=== PATIENT | female | born 1985 | race Caucasian/White ===

== ENCOUNTER 2016-06-08 10:05 | Observation (INO) ==
[2016-06-08 12:37] LABS: Apearance,Urine CLOUDY (Clear); Bilirubin,Urine Negative (Negative); Blood, Urine Negative (Negative); Glucose,Urine (UA) Negative (Negative); Ketones,Urine Negative (Negative); Mucus,Urine Many /LPF (Occasional); Nitrite,Urine Negative (Negative); Protein,Urine Negative; RBC,Urine 8 /HPF (0-4); Squamous Epithelial Cell,Urine Occasional /HPF (0-10); Urine Color Amber (Yellow); Urine Specific Gravity 1.019 (1.001-1.035); Urine Urobilinogen < 2.0 EU/DL (0.2-1.0); WBC,Urine 5 /HPF (0-6)
[2016-06-08 12:52] LABS: Albumin 4.3 G/DL (3.4-5.0); Calcium 9.4 MG/DL (8.5-10.1); Potassium 4.9 MMOL/L (3.5-5.1); Total Protein 8.2 G/DL (6.4-8.3)
[2016-06-08] MEDS ORDERED: ONDANSETRON 4 MG/2 ML VIAL IV STA ×2 (13:00→15:32)
[2016-06-08] MEDS ORDERED: ONDANSETRON 4 MG/2 ML VIAL ONE ×3 (13:08→16:29)
[2016-06-08 13:12] LABS: Basophils # 0.1 10*3/uL (0.0-0.2); Basophils % 0.8 % (0.0-0.8); Eosinophils # 0.2 10*3/uL (0.0-0.87); Eosinophils % 2.6 % (0.00-10.9); Hemoglobin 13.4 GM/DL (12.0-16.0); Immature Granulocytes % 0.2 %; Immature Granulocytes Absolute 0.02 #; Lymphocytes # 2.7 10*3/uL (1.4-4.0); Mean Corpuscular HGB Conc 32.7 GM/DL (32-36); Mean Corpuscular Hemoglobin 30 PG (27-34); Mean Corpuscular Volume 91.5 FL (87-102); Mean Platelet Volume 9.6 FL (9.6-12.0); Monocytes # 0.5 10*3/uL (0.11-0.8); Monocytes % 5.3 % (1.7-12.7); Neutrophils # 5.2 10*3/uL (1.4-7.4); Neutrophils % 60.1 % (38.7-73.9); Platelet Count 288 10*3/uL (130-400); Red Blood Count 4.48 10*6/uL (3.8-5.5); Red Cell Distribution Width 12.3 % (9.3-17.3); White Blood Count 8.7 10*3/uL (4.5-13.71)
--- NOTE | 2016-06-08 15:18 | Emergency Department Note ---
Hermes Burns Gwan, am scribing for, and in the presence of, Eugene Ng MD 13:07. Hernandez Burns Phillip K, MD, personally performed the services described in this documentation, ascribed by Tevin Mirza in my presence, and it is both accurate and complete 517 . Arrival - Arrival Chief Complaint: Abdominal / Flank Pain Stated Complaint: pain in upper right abd, back pain ED Nursing Triage Note: Pt c/o right upper abd, Epigastric pain that goes through to her back for a while now with nausea. Mode of Arrival: Ambulatory Limitations: No Limitations Source: Patient, Old Records Reviewed, RN Notes Reviewed - History of Present Illness HPI Narrative: Pt is a 30 y/o female who presents to the ED with a c/o right upper abd pain with an onset of months. Patient noted that her pain has been constant. Nurses noted that pt was seen in ED 05/10/2016 for the same reason and received a sonogram negative results. She was instructed to get a Hida Scan done. Patient stated that she has not been complaint with discharge instructions. She confirmed that her pain is worsened with eating, that her pain radiates to her back, that she smokes and has occasional ETOH use. She denies fever, diarrhea. Her associated sxs have been nausea. She is followed by Dr. Frank. Patient has a PMHx of Appendectomy and a FMHx of gall stones. No other problems/complaints reported in ED. Onset (ago): day(s) Consistency: constant Severity: moderate Date of Last Menstrual Period: HYST Allergies/Adverse Reactions: Allergies Allergy/AdvReac Type Severity Reaction Status Date / Time adhesive Allergy Redness of Verified 06/08/16 10:12 Skin cephalexin [From Keflex] Allergy ANAPHYLAXIS Verified 05/17/16 18:07 Latex, Natural Rubber Allergy Swelling Verified 05/17/16 18:07 of Lip/Tongue/Throat Penicillins Allergy ANAPHYLAXIS Verified 05/17/16 18:07 Home Medications: Home Medications Medication Instructions Recorded Confirmed Type Alprazolam [Xanax] 2 mg PO BID 05/10/16 05/10/16 History Melatonin 1 tablet PO DAILY PRN 05/10/16 05/10/16 History Paroxetine HCl [Paxil] 40 mg PO BID 05/10/16 05/10/16 History Zolpidem [Ambien] 5 mg PO BEDTIME 05/10/16 05/10/16 History traZODone [Desyrel] 100 mg PO BID 05/10/16 05/10/16 History Dicyclomine Cap/Tab [Bentyl 20 mg PO QID PRN #20 tablet 05/11/16 Rx Cap/Tab] Ondansetron [Ondansetron Odt] 8 mg PO Q4H PRN #10 tab.rapdis 05/11/16 Rx Cyclobenzaprine HCl 5 mg PO TID #30 tablet 05/17/16 Rx Naproxen [Naprosyn] 500 mg PO Q12H #30 tablet 05/17/16 Rx Review of System - Review of System 12 point system: reviewed and no additional remarkable complaints except as stated - Review of System Gastrointestinal: Present: as per HPI, abdominal pain, nausea Musculoskeletal: Present: as per HPI, back pain Medical,Surgical,& Family Hx - Medical History Psychological: History of: Anxiety Disorders, Depression Neurology: History of: Migraine - Surgical History Reproductive Surgeries: Surgical HX of;: Hysterectomy - Family History Family History: Reports;: Family Cancer, Family Hypertension, Family Stroke - Social History Smoking Status: Current every day smoker Exam Vital Signs: Vital Signs Temperature 96.9 F L 06/08/16 10:08 Pulse Rate 97 H 06/08/16 10:08 Respiratory Rate 18 06/08/16 10:08 Blood Pressure 113/78 06/08/16 10:08 O2 Sat by Pulse Oximetry 96 06/08/16 10:08 - General General appearance: alert - Head Head exam: Present: atraumatic, normocephalic - Eye Eye exam: Present: normal appearance, PERRL, EOMI - ENT ENT exam: Present: normal oropharynx, mucous membranes moist, TM's normal bilaterally, normal external ear exam - Neck Neck exam: Present: full ROM, tenderness - Chest Chest inspection: Present: symmetric chest wall rise. Absent: tenderness - Respiratory Respiratory exam: Present: normal lung sounds bilaterally. Absent: respiratory distress - Cardiovascular Cardiovascular exam: Present: regular rate, normal rhythm, normal heart sounds. Absent: murmur, rubs, gallop - Extremities Exam Extremities exam: Present: full ROM. Absent: tenderness, pedal edema, calf tenderness - Back Exam Back exam: Present: full ROM - Neurological Exam Neurological exam: Present: alert, oriented X3, CN II-XII intact. Absent: motor sensory deficit - Psychiatric Psychiatric exam: Present: normal affect, normal mood - Skin Skin exam: Present: warm, dry, intact, normal color Results - Labs CBC & BMP: 06/08/16 12:53 06/08/16 12:22 Lab Results: I have reviewed the patients labs Labs: Laboratory Tests 06/08/16 12:19 Urine pH 5.0 Ur Specific [place] 1.019 Urine Urobilinogen < 2.0 H Urine Leukocytes Small H Urine RBC 8 Urine WBC 5 Ur Squamous Epith Cells Occasional Urine Mucus Many Laboratory Tests 06/08/16 12:53 WBC 8.7 RBC 4.48 Hgb 13.4 Hct 41.0 Plt Count 288 Laboratory Tests 06/08/16 12:22 Sodium 143 Potassium 4.9 Chloride 109 H Carbon Dioxide 25 BUN 15 Creatinine 0.50 L BUN/Creatinine Ratio 30.00 H Globulin 3.9 H - Diagnostic Findings Procedure: X-ray: report reviewed by me (HIDA scan shows a 3% ejection fraction. ) Disposition Clinical Impression: Acute acalculous cholecystitis Case discussed with: patient Disposition: Still a Patient Condition: Guarded Additional Instructions: Admit to Dr. Hinojosa
--- NOTE | 2016-06-08 15:24 | Nuclear Medicine Report ---
NM hepatobiliary Indication: Abdominal pain. HIDA scan Technique: Following the IV administration of 5 mCi technetium 99 labeled Choletec, planar imaging of the liver was performed. At 60 minutes, 1.8 mcg of sincalide was injected IV, and time activity curves of the gallbladder calculated. Findings: Normal liver activity at 5 minutes followed by common bile duct and small bowel activity at 15 minutes. At 60 minutes, gallbladder still shows no activity. At 90 minutes, faint gallbladder activity is present. With the injection of cholecystokinin, patient complained of nausea and cramping. Ejection fraction is 0%. Impression: Cholecystitis. Gallbladder dyskinesia. No CBD obstruction. PROCEDURE INTERPRETED AT [facility] DEPARTMENT OF RADIOLOGY Final Report Signed by: Lionel Oliveira M.D.
[2016-06-08] MEDS ORDERED: MORPHINE 2 MG/1 ML SYRINGE IV STA (15:32)
[2016-06-08] MEDS ORDERED: MORPHINE 2 MG/1 ML SYRINGE ONE (15:40)
[2016-06-08] MEDS ORDERED: VANCOMYCIN INJ 1,000 MG in SODIUM CHLORIDE 0.9% 250 ML IV ONE (15:51)
--- NOTE | 2016-06-08 15:56 | General Surg History&Physical ---
Addendum entered and electronically signed by Jeremy Coreas MD 06/08/16 16:06: Patient seen and examined. See Hazel Chu's note for details. Patient presents with a two-week history of right upper quadrant abdominal pain. Previous ultrasound showed no significant pathology. She underwent HIDA scan today after her pain is continually progressed which was consistent with cholecystitis. She's had nausea and vomiting but no fever. Her lab work was reviewed. She is otherwise healthy with the exception of depression and anxiety. She has no problems with her heart or lungs. On exam her abdomen is soft but very tender to palpation in the right upper quadrant with a positive Mccarty sign. I discussed options with the patient including antibiotic therapy alone versus percutaneous cholecystostomy tube versus laparoscopic cholecystectomy. She wants to proceed with laparoscopic cholecystectomy. The risk of the procedure including bleeding, infection, damage to surrounding structures, need for further surgery, injury to the biliary tree, conversion to an open procedure were all discussed in detail. She would like to proceed as soon as possible. Original Note: Assessment and Plan - Time spent with patient Time spent with patient: Less than 30 minutes (1) Acute cholecystitis without calculus Status: Acute Assessment and plan: 30WF w history of anxiety and depression admitted by dr coreas w acute cholecystitis w biliary dyskinesia. pt is npo. to OR today by dr coreas for lap appy. dr coreas has seen and examined pt. Current Visit: Yes History of Present Illness Chief complaint: abd pain History of present illness: 30WF w history of anxiety and depression came into ED w 2 wk history of intermittent RUQ and epigastric abdominal pain that radiates through to the back. pt came into ED on 05/10/17 and discharged home w diagnosis of constipation. US done at that time was normal. pt states the pain has continued to worsen and the last 3 days it has been constant. she hasnt had anything to eat or drink in 2 days. this pain is accompanied by nausea and vomiting w chills but no fever. pt denies CP but cant take deep breath because of the abdominal pain. she has had a lap appy, 3 Csections and complete hysterectomy. her labs are normal, HIDA scan w 0%EF and nausea and cramping w administration of dye. pt is visibly in pain and very ttp in ruq and epig. dr coreas has been asked to admit. Home Medications Medication Instructions Recorded Confirmed Type Alprazolam [Xanax] 2 mg PO BID 05/10/16 05/10/16 History Melatonin 1 tablet PO DAILY PRN 05/10/16 05/10/16 History Paroxetine HCl [Paxil] 40 mg PO BID 05/10/16 05/10/16 History Zolpidem [Ambien] 5 mg PO BEDTIME 05/10/16 05/10/16 History traZODone [Desyrel] 100 mg PO BID 05/10/16 05/10/16 History Dicyclomine Cap/Tab [Bentyl 20 mg PO QID PRN #20 tablet 05/11/16 Rx Cap/Tab] Ondansetron [Ondansetron Odt] 8 mg PO Q4H PRN #10 tab.rapdis 05/11/16 Rx Cyclobenzaprine HCl 5 mg PO TID #30 tablet 05/17/16 Rx Naproxen [Naprosyn] 500 mg PO Q12H #30 tablet 05/17/16 Rx Allergies Allergy/AdvReac Type Severity Reaction Status Date / Time adhesive Allergy Redness of Verified 06/08/16 10:12 Skin cephalexin [From Keflex] Allergy ANAPHYLAXIS Verified 05/17/16 18:07 Latex, Natural Rubber Allergy Swelling Verified 05/17/16 18:07 of Lip/Tongue/Throat Penicillins Allergy ANAPHYLAXIS Verified 05/17/16 18:07 Medical,Surgical,& Family Hx - Medical History Psychological: History of: Anxiety Disorders, Depression Neurology: History of: Migraine - Surgical History Reproductive Surgeries: Surgical HX of;: Hysterectomy - Family History Family History: Reports;: Family Cancer, Family Hypertension, Family Stroke - Social History Smoking Status: Current every day smoker Exam - Constitutional Vitals: Period Temp Pulse Resp BP Sys/Loera Pulse Ox Last 24 Hr 96.9 F 97 18 113/78 96 30WF, mild distress due to pain, alert and oriented present chest clear cv rrr abd soft, well healed scars around umbilicus and lower pelvis, TTP RUQ and epig , no peritoneal signs ext no edema - Constitutional Constitutional: Present: as per HPI Quality Measures - VTE Contraindication to Pharmacological VTE Prophylaxis: High Risk of Bleeding Results - Labs CBC & BMP: 06/08/16 12:53 06/08/16 12:22 Lab Results: I have reviewed the past 24 hour labs
[2016-06-08] MEDS ORDERED: FAMOTIDINE 20 MG/2 ML VIAL IV ONE (16:00)
[2016-06-08] MEDS ORDERED: LIDOCAINE 1%/EPI INJ 20 ML VIAL ONE (16:01)
[2016-06-08] MEDS ORDERED: BUPIVACAINE MPF 0.25% /EPI 30 ML VIAL ONE (16:01)
[2016-06-08] MEDS ORDERED: TISSUE ADHESIVE 1 EACH APPLICATOR TOP ONE (16:01)
[2016-06-08] MEDS ORDERED: DEXAMETHASONE 10 MG/1 ML VIAL ONE (16:29)
[2016-06-08] MEDS ORDERED: PROPOFOL 200 MG/20 ML VIAL IV ONE (16:29)
[2016-06-08] MEDS ORDERED: GLYCOPYRROLATE 0.4 MG/2 ML VIAL ONE (16:29)
[2016-06-08] MEDS ORDERED: ROCURONIUM 100 MG/10 ML VIAL IV ONE (16:29)
[2016-06-08] MEDS: LACTATED RINGERS 1,000 ML IV SCH ×2 (16:29→17:30)
[2016-06-08] MEDS ORDERED: NEOSTIGMINE 10 MG/10 ML VIAL ONE (16:29)
[2016-06-08] MEDS ORDERED: KETOROLAC 30 MG/1 ML VIAL ONE (16:29)
[2016-06-08] MEDS ORDERED: LIDOCAINE 2% 5 ML VIAL ONE (16:29)
[2016-06-08] MEDS ORDERED: CIPROFLOXACIN 400 MG/200 ML PREMIX IV ONE (16:57)
[2016-06-08] MEDS ORDERED: ACETAMINOPHEN 325 MG TABLET PO PRN (17:16)
[2016-06-08] MEDS ORDERED: ONDANSETRON 4 MG/2 ML VIAL IV PRN ×2 (17:16→17:38)
--- NOTE | 2016-06-08 17:22 | Operative Note ---
Date of procedure: 06/08/16 Pre-op diagnosis: acute cholecystitis Post-op diagnosis: same (early cholecystitis, biliary dyskinesia) Procedure: Procedure performed: Laparoscopic cholecystectomy next Procedure in detail: After informed consent was obtained, the patient was taken operating suite and laid supine on the operating table. After general anesthesia was induced the abdomen was prepped and draped in usual sterile fashion. After procedural pause local anesthetic and straighten the skin and subcutaneous tissue just above the umbilicus. Incision was made and dissection carried down through skin and soft tissue. Fascia was grasped with [place]'s note elevated. Fascial incision was made and the abdominal cavity was entered bluntly. Finger sweep revealed no adhesions. Duvall trocar placed under visualization and pneumoperitoneum achieved. Camera inserted and bowel and mesentery were inspected and found be free of any violation. Patient was placed in reverse Trendelenburg position rotated to the left. 25 mm trochars were placed in the right upper quadrant 11 mm subxiphoid trocar was placed all under visualization. Gallbladder identified it was dilated with minimal edema present. It was grasped and retracted toward the head. Infundibular gallbladder retracted toward the right hip. Dissection was then carried out from a lateral to medial approach and the triangle of [place]. Cystic duct and cystic artery were identified and isolated. Using a critical view technique these were the only 2 structures entering the gallbladder. The cystic duct was then triple clipped and transected at the junction of the cystic duct and neck of the gallbladder. The cystic artery was triple clipped and transected along the gallbladder wall. Gallbladder was removed moved from the gallbladder fossa using hook cautery and placed in an Endo Catch sac. It was retrieved through the Duvall trocar site pneumoperitoneum was reachieved. Right upper quadrant was inspected and the clips found be intact no leakage of bilious or sanguinous fluid. There was excellent hemostasis. The trochars were removed as the abdomen desufflated. Fascia at the Duvall trocar site closed using 0 Vicryl [id number] interrupted suture. Once thoroughly irrigated and suction the skin closed with shayla. Sterile dressings applied and the patient was explained taken recovery room in stable condition. All lap and needle counts correct at the end of the case. Anesthesia: GETA Surgeon / Physician: Jeremy Mclean Estimated blood loss: other (less than 5 mL) Specimens: other (gallbladder) Condition: stable Disposition: PACU Results - Labs CBC & BMP: 06/08/16 12:53 06/08/16 12:22 Discharge Plan - Discharge Data Disposition: Still a Patient - Discharge Medications No Action traZODone [Desyrel] 100 mg PO BID Zolpidem [Ambien] 5 mg PO BEDTIME Melatonin 10 mg PO BEDTIME Paroxetine HCl [Paxil] 40 mg PO DAILY Alprazolam [Xanax] 2 mg PO BID Ondansetron [Ondansetron Odt] 8 mg PO Q4H PRN #10 tab.rapdis PRN Reason: Nausea - Follow Up or Referral - Forms/Instructions
--- NOTE | 2016-06-08 17:37 | Anesthesia ---
Anesthesia Post OP - Post Ansesthetic Evaluation Patient seen in post op: Yes Resp: within normal limits CV: within normal limits Mental: within normal limits Temp: within normal limits [id number]: within normal limits Nausea and Vomiting: within normal limits Pain: within normal limits
[2016-06-08] MEDS ORDERED: ACETAMINOPHEN 1,000 MG/100 ML VIAL IV ONE (17:41)
[2016-06-08] MEDS ORDERED: MIDAZOLAM 2 MG/2 ML VIAL ONE (17:41)
[2016-06-08] MEDS ORDERED: SEVOFLURANE 1 UNIT/15 MINUTE INH ONE (17:41)
[2016-06-08] MEDS ORDERED: fentaNYL 100 MCG/2 ML VIAL ONE (17:41)
[2016-06-08] MEDS: HYDROmorphone 2 MG/1 ML VIAL IV PRN ×2 (17:52→17:57)
[2016-06-08] MEDS ORDERED: ZALEPLON 5 MG CAPSULE PO PRN (22:40)
[2016-06-08] MEDS: traZODone 50 MG TABLET PO SCH (23:11)
[2016-06-09] MEDS: HYDROmorphone 2 MG/1 ML VIAL IV PRN ×2 (00:17→08:56)
[2016-06-09] MEDS ORDERED: MELATONIN 3 MG TABLET PO ONE (03:00)
[2016-06-09] MEDS: traZODone 50 MG TABLET PO SCH (08:56)
[2016-06-09] MEDS ORDERED: PANTOPRAZOLE 40 MG TABLET PO SCH (09:00)
[2016-06-09] MEDS ORDERED: ALPRAZolam 0.5 MG TABLET PO SCH (09:00)
[2016-06-09] MEDS ORDERED: PARoxetine 20 MG TABLET PO SCH (09:00)
--- NOTE | 2016-06-09 11:49 | Discharge Summary ---
Hospital Course - Hospital Course Hospital Course: 30WF w history of anxiety and depression admitted by dr coreas w acute cholecystitis w biliary dyskinesia. she was taken to the OR on 06/08/16 for lap cholecystectomy by dr coreas. she is doing well postop. follow up w dr coreas in 2wks. dc instructions were given. - Time spent with patient Time with patient DS: Less than 30 minutes Diagnosis - Discharge Diagnosis (1) Acute cholecystitis without calculus Status: Acute Specialty Discharge - Follow Up or Referrals Follow up with: Jeremy Coreas MD [Physician] - 06/23/16 9:45 am Discharge Plan - Discharge Data Disposition: Disch To Home/Self Care Condition at Discharge: Stable Discharge Diet: advance to your usual diet Activity: increase activity as tolerated, no lifting Hygiene: may shower Driving: other (no driving if taking pain pills) Contact your physician if you experience:: fever over 101, Nausea/Vomiting Wound / Dressing Care Instructions: ok to shower daily w mild soap and water, pat dry. ok to leave open to the air or cover prn w bandaids. - Discharge Medications New HYDROcodone/ACETAMIN 7.5-325 [[place] 7.5-325] 1 - 2 tablet PO Q4H PRN #30 tablet PRN Reason: Pain Moderate (4-7) Continue traZODone [Desyrel] 100 mg PO BID Zolpidem [Ambien] 10 mg PO BEDTIME Melatonin 10 mg PO BEDTIME Promethazine Tab [Phenergan Tab] 25 mg PO DAILY PRN PRN Reason: Nausea Paroxetine HCl [Paxil] 40 mg PO DAILY Alprazolam [Xanax] 2 mg PO BID - Follow Up or Referral Follow Up: Jeremy Coreas MD [Physician] - 06/23/16 9:45 am - Forms/Instructions Instructions: Laparoscopic Cholecystectomy (DC) Exam - Constitutional Vitals: Period Temp Pulse Resp BP Sys/Loera Pulse Ox Last 24 Hr 97.5 F-99.2 F 84-100 13-20 87-132/50-83 8-100 Discharge Results Labs on day of discharge: Preliminary micro results at discharge 06/08/16 Unknown Urine Culture - Preliminary Urine,Clean Catch No Growth at 24 hours. DS: Provider Date of admission: 06/08/16 17:16 Primary care physician: . No PCP Attending physician on admission: Jeremy Coreas MD Discharging clinician: DAYSI Mathew Expected date of discharge: 06/09/16
[2016-06-09 12:44] VITALS: BP 95/58
[2016-06-09] MEDS ORDERED: MELATONIN 3 MG TABLET PO SCH (21:00)
--- NOTE | 2016-06-10 11:45 | Pathology Report from [facility] ---
ACCESSION # : [id number] PATIENT NAME : Chana Torres ORDERING DR : Jeremy Mclean MD CLINICAL HX: Acute Cholecystitis POST-OP DX: Same SPECIMEN INFO: Gallbladder GROSS DESCRIPTION: The specimen is received in formalin labeled with the patient 's name Chana Torres is an intact gallbladder measuring 8.8 x 3.7 cm. The serosa is smooth and green doty. The gallbladder wall has a thickness of 0.1 cm. The mucosa is granular and bile stain green. The lumen contains slightly viscous dark green bile. No stones are identified. Tray Packer sections are submitted in one cassette. DIAGNOSIS FOR CHANA TORRES: GALLBLADDER, CHOLECYSTECTOMY: Chronic cholecystitis. SERVICE DATE: 06/09/2016 REPORT DATE: 06/10/2016 PATHOLOGIST: Nimesh Wallace
== END 2016-06-09 12:35 | disposition home or self-care (01) ==
LOC: N.EDINP 10:05 → N.ED 10:05 → N.3E 16:00
PROVIDERS: ADMIT Surgery; ATTEND Surgery
PROC: LAPCHOL (2016-06-08 16:29)